=== PATIENT | male | born 1975 | race Caucasian/White ===

== ENCOUNTER 2022-10-13 21:41 | Emergency (ER) | payer MEDICAID ==
[~2022-10-13] VITALS: Ht 180.3 cm; Wt 84.5 kg
[2022-10-13 21:43] VITALS: BP 150/90
--- NOTE | 2022-10-13 21:43 | NUR ---
TO BED AMBULATORY
--- NOTE | 2022-10-13 22:15 | NUR ---
PATIENT LEFT WITHOUT BEING SEEN BY DR. PARSONS. NO FURTHER CARE PROVIDED FOR PATIENT.
== END 2022-10-13 22:15 | disposition left against medical advice (07) ==
LOC: MED 21:41
DX: S01.21XA Laceration without foreign body of nose, initial encounter (principal); Z53.21 Procedure and treatment not carried out due to patient leaving prior to being seen by health care provider; Y04.8XXA Assault by other bodily force, initial encounter; Y93.89 Activity, other specified; Y92.89 Other specified places as the place of occurrence of the external cause; Y99.8 Other external cause status
CPT/HCPCS: 99281